=== PATIENT | male | born 1965 | race Caucasian/White ===

== ENCOUNTER 2017-01-07 09:16 | Day surgery (SDC) | payer BC ==
[2017-01-02 10:24] VITALS: BMI 29.2
[~2017-01-07 09:16] MED LIST: LACTATED RINGERS 1,000 ML IV SCH
[2017-01-07 09:38] VITALS: TEMP 96.6
[2017-01-07] MEDS ORDERED: LIDOCAINE 1% INJ 10MG/ML (20 ML MDV) ONE (10:07)
[2017-01-07] MEDS ORDERED: PROPOFOL 10 MG/ML 20 ML VIAL IV ONE (10:07)
--- NOTE | 2017-01-07 10:10 | P.GSHP ---
History of Present Illness H&P Date: 01/07/17 Chief Complaint: Screening colonoscopy This a 51-year-old male referred from Dr. Dale. Patient presents today for initial screening colonoscopy. 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 CVA- RESIDUAL DOUBLE VISION. GOUT History of Any Multi-Drug Resistant Organisms: None Reported Additional Past Surgical History / Comment(s): PAVEL Past Anesthesia/Blood Transfusion Reactions: No Reported Reaction Smoking Status: Former smoker Past Alcohol Use History: Occasional Additional Past Alcohol Use History / Comment(s): QUIT SMOKING 2001 Past Drug Use History: None Reported - Past Family History Mother Family Medical History: No Reported History Medications and Allergies Home Medications Medication Instructions Recorded Confirmed Type Allopurinol [Zyloprim] 300 mg PO HS 01/02/17 01/07/17 History Aspirin [Adult Low Dose Aspirin EC] 81 mg PO HS 01/02/17 01/07/17 History Atenolol [Tenormin] 25 mg PO HS 01/02/17 01/07/17 History Atorvastatin [Lipitor] 20 mg PO HS 01/02/17 01/07/17 History Clopidogrel [Plavix] 75 mg PO HS 01/02/17 01/07/17 History Omeprazole [PriLOSEC] 20 mg PO HS 01/02/17 01/07/17 History Ibuprofen [Advil] 200 mg PO Q8HR PRN 01/07/17 01/07/17 History Allergies Allergy/AdvReac Type Severity Reaction Status Date / Time No Known Allergies Allergy Verified 01/02/17 10:17 Surgical - Exam Vital Signs Temp Pulse Resp BP Pulse Ox 96.6 F L 72 16 120/74 98 01/07/17 09:37 01/07/17 09:37 01/07/17 09:37 01/07/17 09:37 01/07/17 09:37 - General well developed, no distress - Eyes PERRL - ENT normal pinna - Neck no masses - Respiratory normal expansion - Cardiovascular Rhythm: regular - Abdomen Abdomen: soft, non tender Assessment and Plan Plan: We'll perform screening colonoscopy.
--- NOTE | 2017-01-07 10:22 | P.OP ---
Date of Procedure: 01/07/17 Preoperative Diagnosis: Screening colonoscopy Postoperative Diagnosis: Normal colon Procedure(s) Performed: Colonoscopy Anesthesia: MAC Surgeon: Maikol Benson Pathology: none sent Condition: stable Disposition: PACU Description of Procedure: Normal colonoscopy
[2017-01-07 10:53] VITALS: BP 102/67; PULSE 77; RESP 16
== END 2017-01-07 11:00 | disposition home or self-care (01) ==
LOC: ORWHC2ENDO 09:16
PROVIDERS: ATTEND Surgery
DX: Z12.11 Encounter for screening for malignant neoplasm of colon (principal); K21.9 Gastro-esophageal reflux disease without esophagitis; Z87.891 Personal history of nicotine dependence; Z86.73 Personal history of transient ischemic attack (TIA), and cerebral infarction without residual deficits; E78.5 Hyperlipidemia, unspecified; I10 Essential (primary) hypertension; M10.9 Gout, unspecified; Z79.82 Long term (current) use of aspirin; Z79.899 Other long term (current) drug therapy
CPT/HCPCS: J2001; J2704; G0121

== ENCOUNTER → 2017-11-11 | Outpatient (CLI) | payer BC ==
[2017-11-11 11:08] LABS: Albumin 4.3 g/dL (3.5-5.0); Bilirubin, Delta 0.4 mg/dL (0.0-0.2); Bilirubin,Unconjugated 0.1 mg/dL (0.0-1.1); Total Bilirubin 0.5 mg/dL (0.2-1.3)
== END | disposition home or self-care (01) ==
LOC: LABWHC1 10:14
PROVIDERS: ATTEND Family Medicine
DX: K21.9 Gastro-esophageal reflux disease without esophagitis (principal); I10 Essential (primary) hypertension; E78.5 Hyperlipidemia, unspecified
CPT/HCPCS: 36415; 80061; 80076

== ENCOUNTER → 2017-11-18 | Outpatient (CLI) | payer BC ==
--- NOTE | 2017-11-18 21:47 | CT ---
EXAMINATION TYPE: CT chest wo con DATE OF EXAM: 11/18/2017 COMPARISON: NONE HISTORY: Patient complains of right side rib pain x8 months. CT DLP: 556.9 mGycm, Automated exposure control for dose reduction was used. CONTRAST: Performed injected with 0 mL of Omnipaque 350. TECHNIQUE: Axial images were obtained at 5 mm thick sections. Reconstructed images are reviewed on [email or web address] computer in the coronal plane. FINDINGS: Portion of the thyroid visualized is normal. No suspicious lung nodules or focal infiltrates are present. No enlarged mediastinal or hilar adenopathy is evident. The ascending aorta diameter at the level o f the main pulmonary artery is 2.9 cm. The main pulmonary artery diameter at the bifurcation is 2.8 cm. Small hiatal hernia is present. Limited CT sections are obtained through the upper abdomen. Abdomen is essentially unremarkable. Osseous structures appear unremarkable. No suspicious lytic or sclerotic lesions are identified. No d isplaced rib fractures are evident. IMPRESSIONS: 1. No abnormality to account for right-sided rib pain. 2. Small hiatal hernia.
== END | disposition home or self-care (01) ==
LOC: RADCTMAIN 16:56
PROVIDERS: ATTEND Family Medicine
DX: K44.9 Diaphragmatic hernia without obstruction or gangrene (principal); R07.81 Pleurodynia; R10.9 Unspecified abdominal pain
CPT/HCPCS: 71250

== ENCOUNTER → 2018-04-08 | Outpatient (CLI) | payer BC ==
[2018-04-08 11:43] LABS: ALT 45 U/L (21-72); AST 30 U/L (17-59); Albumin 4.4 g/dL (3.5-5.0); Alkaline Phosphatase 36 U/L (38-126); Anion Gap 8 mmol/L; Blood Urea Nitrogen 14 mg/dL (9-20); Calcium 9.9 mg/dL (8.4-10.2); Carbon Dioxide 28 mmol/L (22-30); Chloride 102 mmol/L (98-107); Cholesterol 173 mg/dL (<200); Glucose 109 mg/dL (74-99); HDL Cholesterol 35 mg/dL (40-60); LDL Cholesterol,Calculated 93 mg/dL (0-99); Sodium 138 mmol/L (137-145); Total Bilirubin 0.6 mg/dL (0.2-1.3); Total Protein 6.9 g/dL (6.3-8.2); Triglycerides 223 mg/dL (<150)
[2018-04-08 11:55] LABS: Basophils % (A) 1 %; Eosinophils # (A) 0.1 k/uL (0-0.7); Eosinophils % (A) 2 %; HCT 40.8 % (39.0-53.0); HGB 13.9 gm/dL (13.0-17.5); Lymphocytes # (A) 2.5 k/uL (1.0-4.8); Lymphocytes % (A) 45 %; MCH 31.1 pg (25.0-35.0); MCV 91.4 fL (80.0-100.0); Mean Platelet Volume 7.6; Monocytes # (A) 0.3 k/uL (0-1.0); Monocytes % (A) 5 %; Neutrophils # (A) 2.5 k/uL (1.3-7.7); Neutrophils % (A) 45 %; Platelet Count 196 k/uL (150-450); RBC 4.46 m/uL (4.30-5.90); RDW 13.8 % (11.5-15.5); WBC 5.5 k/uL (3.8-10.6)
[2018-04-08 11:58] LABS: T4, Free (Free Thyroxine) 0.91 ng/dL (0.78-2.19)
[2018-04-08 12:12] LABS: Prostate Specific Antigen 0.74 ng/mL (0.00-4.00)
== END | disposition home or self-care (01) ==
LOC: LABWHC1 10:48
PROVIDERS: ATTEND Family Medicine
DX: Z00.00 Encounter for general adult medical examination without abnormal findings (principal); I10 Essential (primary) hypertension; Z79.899 Other long term (current) drug therapy
CPT/HCPCS: 36415; 80053; 80061; 84153; 84439; 84443; 85025

== ENCOUNTER → 2023-07-29 | Outpatient (CLI) | payer BC ==
--- NOTE | 2023-07-29 13:51 | US ---
EXAMINATION TYPE: US kidneys/renal and bladder DATE OF EXAM: 07/29/2023 COMPARISON: NONE CLINICAL INDICATION: Male, 58 years old with history of R10.9 UNSPECIFIED ABDOMINAL PAIN; left flank pain x 1 week that has now resolved; urinary frequency and urgency EXAM MEASUREMENTS: Right Kidney: 11.4 x 5.7 x 5.2 cm Left Kidney: 11.7 x 6.5 x 4.9 cm Right Kidney: Cystic area noted inferiorly measuring 1.9 x 1.7 x 1.7 cm; echogenic focus with twinkle artifact measuring 1.0 cm Left Kidney: Mild hydronephrosis Bladder: Not fully distended - patient voided prior to exam Bilateral Jets seen: Yes No solid masses are identified. The urinary bladder is anechoic. Bilateral ureteral jets are seen. IMPRESSION: 1. Mild left-sided hydronephrosis. 2. Right-sided nephrolithiasis suggested. 3. Simple cyst right kidney.
== END | disposition home or self-care (01) ==
LOC: RADUSWWP 13:00
PROVIDERS: ATTEND Family Medicine
DX: N13.30 Unspecified hydronephrosis (principal); N28.1 Cyst of kidney, acquired; R35.0 Frequency of micturition
CPT/HCPCS: 76770